=== PATIENT | female | born 1950 | race Caucasian/White ===

== ENCOUNTER 2019-11-27 17:51 | Inpatient (IN) | payer MEDICARE, OTHER ==
[~2019-11-27] VITALS: Ht 157.4 cm; Wt 44.5 kg
[2019-11-27] VITALS (8 sets, daily range): BP systolic 134–161; BP diastolic 61–93
[~2019-11-27 17:51] MED LIST: ASPIRIN81 M1 PO; ATENOLOL25 MG PO; ATIVAN1 MG PO; CRESTOR40 MG PO; FISH OIL 10001000 MG PO; HYDROCODONE BIT1 T11 PO; KEFLEX500 MG PO; NAPROSYN500 MG PO; NEXIUM40 MG PO; PREMARIN0.625 M1 PO; VITAMIN D400 IU PO
[2019-11-27 18:18] LABS: BASO # 0.1 10*3/uL (0.0-0.1); BASO % 0.7 % (0.0-1.0); EOS # 0.1 10*3/uL (0.0-0.4); EOS % 0.7 % (1.0-4.0); HEMATOCRIT 34.4 % (37.0-47.0); LYMPH # 1.3 10*3/uL (1.3-4.4); LYMPH % 16.2 % (27.0-41.0); MEAN CELL VOLUME 97.7 fl (81.0-99.0); MEAN CORPUSCULAR HGB 31.5 pg (27.0-31.0); MEAN CORPUSCULAR HGB CONC 32.3 g/dl (33.0-37.0); MEAN PLATELET VOLUME 9.5 fl (9.6-12.3); MONO # 0.6 10*3/uL (0.1-1.0); MONO % 7.5 % (3.0-9.0); NEUT # 6.1 10*3/uL (2.3-7.9); NEUT % 74.3 % (47.0-73.0); NUCLEATED RED BLOOD CELL 0.4 % (0.0-0.0); PLATELET COUNT AUTOMATED 219 10*3/uL (130-400); RED BLOOD COUNT 3.52 10*6/uL (4.10-5.10); RED CELL DISTRI WIDTH 18.4 % (0-14.5); WHITE BLOOD COUNT 8.2 10*3/uL (4.8-10.8)
--- NOTE | 2019-11-27 18:30 | NUR ---
Pt does not want right port used at this time.
[2019-11-27 18:38] LABS: CREATININE 1.5 mg/dL (0.55-1.02); POTASSIUM 3.5 mmol/L (3.5-5.1); TOTAL PROTEIN 6.4 gm/dL (6.4-8.2)
[2019-11-27 18:40] LABS: ACT PARTIAL THROMBO TIME 26.8 SECONDS (20.0-32.1); INTERNATIONAL NORM RATIO 1.1 (2.0-3.5)
[2019-11-27 18:45] LABS: TROPONIN I 0.162 ng/ml (<0.045)
--- NOTE | 2019-11-27 20:38 | NUR ---
Pt states she feels short of breath.Pt was 95 percent on room air and placed on 3 liters at this time.Pt has dimsined lung sounds and reps are easy and nonlabored at this time.
--- NOTE | 2019-11-27 21:15 | NUR ---
aware of pt stating she is short of breath and pt placed on oxygen at this time.
--- NOTE | 2019-11-27 21:39 | NUR ---
Pt up to bathroom at this time.Pt was inc x1 of urine . Pt changed brief and did candy care at this time. Pt short of breath when walking to restroom but when sitting resps non labored.Pt is corse in upper lobes and diminshed in bases abd 95 percent on room air.Pt placed back on 2 liters and is 97 percent at this time.
--- NOTE | 2019-11-27 21:46 | NUR ---
in to see pt and ok for pt to eat at this time.
[2019-11-27] MEDS ORDERED: LORAZEPAM1 MG PO (22:42)
[2019-11-27] MEDS ORDERED: HYDROCORTISONE10 MG PO (22:42)
--- NOTE | 2019-11-27 22:50 | NUR ---
A 69, admitted to , under the services of STEPHANIE Mccann DO with a diagnosis of SYSTOLIC CHF; COPD. Chief complaint is SOB. Patient arrived via bed from ER. Monitor applied. Initial assessment completed. Vital signs taken and recorded. STEPHANIE MCCANN DO notified of admission to the unit. Orders received. See assessment for past medical history, medications and allergies. Patient and/or family oriented to unit. [facility] visitation policy reviewed. Clothing/patient valuable form completed. ESAU DE DIOS
[2019-11-27] MEDS ORDERED: ASPIRIN CHEWABL81 MG PO (23:23)
[2019-11-27] MEDS ORDERED: SODIUM BICARBO650 MG PO (23:31)
--- NOTE | 2019-11-27 23:35 | NUR ---
DR. ALEJANDRO NOTIFID OF CRITICAL TROPONIN OF 0.136
[2019-11-27] MEDS ORDERED: ESOMEPRAZOLE MA40 M1 PO (23:37)
[2019-11-27] MEDS ORDERED: ADVAIR 250/501 EA INH (23:38)
[2019-11-27] MEDS ORDERED: PROAIR HFA8.5 GM INH (23:40)
--- NOTE | 2019-11-27 23:56 | NUR ---
CONSULT CALLED TO DR. REYNOLDS'S ANSWERING SERVICE
--- NOTE | 2019-11-28 02:27 | NUR ---
ATIVAN GIVEN PER ORDER FOR COMPLAINTS OF ANXIETY. WILL MONITOR
--- NOTE | 2019-11-28 03:25 | NUR ---
ATIVAN APPEARS EFFECTIVE, PATIENT ASLEEP AT THIS TIME.
--- NOTE | 2019-11-28 05:30 | NUR ---
IN TO SEE PT AND PASS MORNING MEDICATION. PT REFUSED. PT STATES "I DONT TAKE THIS MEDICATION"
[2019-11-28 06:04] LABS: BASO % 0.1 % (0.0-1.0); HEMATOCRIT 32.7 % (37.0-47.0); LYMPH # 0.7 10*3/uL (1.3-4.4); MEAN CELL VOLUME 96.2 fl (81.0-99.0); MEAN CORPUSCULAR HGB 32.4 pg (27.0-31.0); MEAN CORPUSCULAR HGB CONC 33.6 g/dl (33.0-37.0); MEAN PLATELET VOLUME 10.1 fl (9.6-12.3); MONO # 0.3 10*3/uL (0.1-1.0); MONO % 3.6 % (3.0-9.0); NEUT # 7.6 10*3/uL (2.3-7.9); NEUT % 87.7 % (47.0-73.0); PLATELET COUNT AUTOMATED 199 10*3/uL (130-400); RED CELL DISTRI WIDTH 18.3 % (0-14.5); WHITE BLOOD COUNT 8.7 10*3/uL (4.8-10.8)
[2019-11-28 06:15] LABS: ALBUMIN 2.8 gm/dl (3.1-4.5); CREATININE 1.29 mg/dL (0.55-1.02); POTASSIUM 3.7 mmol/L (3.5-5.1)
[2019-11-28 06:22] LABS: FREE T4 0.98 ng/dl (0.76-1.46); THYROID STIM HORMONE (HS) 0.48 uIU/ml (0.358-4.75)
[2019-11-28 06:37] LABS: ACT PARTIAL THROMBO TIME 28.7 SECONDS (20.0-32.1); INTERNATIONAL NORM RATIO 1.1 (2.0-3.5)
--- NOTE | 2019-11-28 07:30 | NUR ---
PT IS SITTING UP IN BED AT THIS TIME. SHE IS VISIBLY UPSET AND STATES THAT SHE "HAD AN AWFUL NIGHT". PT IS REQUESTING TO BED EDUCATED ON SCHEDULED MEDICATIONS, EDUCATION PROVIDED AND PATIENT VERBALIZES UNDERSTANDING. RESPS ARE EASY AND NONLABORED, VITAL SIGNS WNL. BED LOW, CALL LIGHT WITHIN REACH. WILL CONTINUE TO MONITOR.
[2019-11-28 07:47] LABS: VITAMIN D, 25-HYDROXY 21.4 ng/mL (30-100)
--- NOTE | 2019-11-28 07:51 | NUR ---
24 HR CHART CHECK COMPLETE
[2019-11-28 08:00] VITALS: BP 143/81
--- NOTE | 2019-11-28 08:35 | NUR ---
PT MEDICATED WITH PRN ATIVAN FOR C/O ANXIETY AT THIS TIME. WILL MONITOR FOR EFFECTIVENESS.
--- NOTE | 2019-11-28 09:00 | NUR ---
case management attempted to visit with patient, she is having echo at this time, will see at a later time
--- NOTE | 2019-11-28 09:20 | NUR ---
PT REPORTS RELIEF OF ANXIETY AT THIS TIME. PRN ATIVAN EFFECTIVE.
--- NOTE | 2019-11-28 09:29 | NUR ---
PRN ATIVAN ADMINISTERED PER ORDER FOR C/O ANXIETY. WILL MONITOR FOR EFFECTIVENESS.
--- NOTE | 2019-11-28 09:45 | NUR ---
case management attempted to visit with patient, she was eating her breakfast and didn't want to talk with case management
--- NOTE | 2019-11-28 11:07 | NUR ---
IN TO SEE PT AT THIS TIME. SHE STATES THAT SHE IS TIRED AND WANTING TO REST BUT OTHERWISE BOICES NO C/O. WILL CONTINUE TO MONITOR.
[2019-11-28 12:00] VITALS: BP 135/58
[2019-11-28 16:00] VITALS: BP 112/93
--- NOTE | 2019-11-28 19:30 | NUR ---
PT RESTING IN BED. VOICES NO CONCERNS AT THIS TIME. RESPS EASY AND NONLABORED. NO S/S OF DISTRESS NOTED. VSS. WHITE BOARD UPDATED. POC DISCUSSED W PT. A/O X3. PT REPORTS DECREASED SHORTNESS OF BREATH. ON 2L NC PRN FOR COMFORT. INSTRUCTED ON NEED FOR SPUTUM. WILL CONTINUE TO MONITOR. CALL LIGHT WITHIN REACH.
[2019-11-28 20:00] VITALS: BP 121/69
--- NOTE | 2019-11-28 20:47 | NUR ---
PT REFUSED LIPITOR. STATES SHE HAS TOLD EVERY DOCTOR IN THIS PLACE SHE TAKES CRESTOR AT HOME AND THAT LIPTIOR CAUSES HER LEGS TO HURT.
[2019-11-29] VITALS: BP 124/67
--- NOTE | 2019-11-29 02:57 | NUR ---
Patient sleeping. Respirations relaxed and easy. Siderails up . [place] on. call light within reach HISSOM,SARAH
--- NOTE | 2019-11-29 03:31 | NUR ---
24 HR chart check completed.
[2019-11-29 05:58] LABS: CREATININE 2.03 mg/dL (0.55-1.02); POTASSIUM 3.7 mmol/L (3.5-5.1)
[2019-11-29 06:00] LABS: BASO % 0.1 % (0.0-1.0); HEMATOCRIT 33.4 % (37.0-47.0); LYMPH # 0.6 10*3/uL (1.3-4.4); LYMPH % 6.3 % (27.0-41.0); MEAN CELL VOLUME 96.3 fl (81.0-99.0); MEAN CORPUSCULAR HGB 32.3 pg (27.0-31.0); MEAN CORPUSCULAR HGB CONC 33.5 g/dl (33.0-37.0); MEAN PLATELET VOLUME 10.2 fl (9.6-12.3); MONO # 0.4 10*3/uL (0.1-1.0); MONO % 3.6 % (3.0-9.0); NEUT # 9.1 10*3/uL (2.3-7.9); NEUT % 89.4 % (47.0-73.0); PLATELET COUNT AUTOMATED 231 10*3/uL (130-400); RED BLOOD COUNT 3.47 10*6/uL (4.10-5.10); RED CELL DISTRI WIDTH 18.2 % (0-14.5); WHITE BLOOD COUNT 10.1 10*3/uL (4.8-10.8)
--- NOTE | 2019-11-29 11:06 | NUR ---
DR. OKEEFE GAVE VO AT BEDSIDE TO HOLD PATIENTS LASIX AT THIS TIME
[2019-11-29 12:00] VITALS: BP 119/68
[2019-11-29] MEDS ORDERED: FUROSEMIDE20 M1 PO (16:38)
[2019-11-29] MEDS ORDERED: LOPRESSOR25 MG PO (16:38)
--- NOTE | 2019-11-29 17:34 | NUR ---
Discharge instructions reviewed with patient/family. Patient receptive and verbalizes understanding. Follow-up care arranged. Written instructions given to patient/family. GERARDO CHICAS
== END 2019-11-29 17:59 | disposition home or self-care (01) | DRG 871 ==
LOC: ED 17:51 → EDHOLD 22:16 → 4E 22:16
PROVIDERS: Emergency Medicine; Internal Medicine; Social Worker Clinical; ADMIT Internal Medicine; ATTEND Internal Medicine
DX: A41.9 Sepsis, unspecified organism (principal); N17.0 Acute kidney failure with tubular necrosis; J18.9 Pneumonia, unspecified organism; I50.43 Acute on chronic combined systolic (congestive) and diastolic (congestive) heart failure; J44.1 Chronic obstructive pulmonary disease with (acute) exacerbation; E44.0 Moderate protein-calorie malnutrition; E27.49 Other adrenocortical insufficiency; Z68.1 Body mass index [BMI] 19.9 or less, adult; J44.0 Chronic obstructive pulmonary disease with (acute) lower respiratory infection; K21.9 Gastro-esophageal reflux disease without esophagitis; I25.10 Atherosclerotic heart disease of native coronary artery without angina pectoris; E78.5 Hyperlipidemia, unspecified; F12.90 Cannabis use, unspecified, uncomplicated; D64.9 Anemia, unspecified; E87.8 Other disorders of electrolyte and fluid balance, not elsewhere classified; R79.82 Elevated C-reactive protein (CRP); E78.2 Mixed hyperlipidemia; C11.9 Malignant neoplasm of nasopharynx, unspecified; I11.0 Hypertensive heart disease with heart failure; R65.20 Severe sepsis without septic shock; I34.0 Nonrheumatic mitral (valve) insufficiency; Z80.42 Family history of malignant neoplasm of prostate; Z88.6 Allergy status to analgesic agent; Z90.710 Acquired absence of both cervix and uterus; Z95.5 Presence of coronary angioplasty implant and graft; I25.2 Old myocardial infarction; Z98.890 Other specified postprocedural states; Z86.79 Personal history of other diseases of the circulatory system; Z79.899 Other long term (current) drug therapy

== ENCOUNTER 2020-01-25 13:16 | Emergency (ER) | payer MEDICARE, OTHER ==
[~2020-01-25] VITALS: Ht 157.4 cm; Wt 47.6 kg
[~2020-01-25 13:16] MED LIST changes: +ADVAIR 250/501 EA INH; +ASPIRIN CHEWABL81 MG PO; +ESOMEPRAZOLE MA40 M1 PO; +FUROSEMIDE20 M1 PO; +HYDROCORTISONE10 MG PO; +LOPRESSOR25 MG PO; +LORAZEPAM1 MG PO; +PROAIR HFA8.5 GM INH; +SODIUM BICARBO650 MG PO
[2020-01-25 14:02] LABS: BASO % 0.4 % (0.0-1.0); EOS % 0.5 % (1.0-4.0); HEMATOCRIT 37.3 % (37.0-47.0); LYMPH % 17.1 % (27.0-41.0); MEAN CELL VOLUME 93.3 fl (81.0-99.0); MEAN CORPUSCULAR HGB 29.8 pg (27.0-31.0); MEAN CORPUSCULAR HGB CONC 31.9 g/dl (33.0-37.0); MEAN PLATELET VOLUME 10.1 fl (9.6-12.3); MONO # 0.3 10*3/uL (0.1-1.0); MONO % 5.2 % (3.0-9.0); NEUT # 4.2 10*3/uL (2.3-7.9); PLATELET COUNT AUTOMATED 126 10*3/uL (130-400); RED CELL DISTRI WIDTH 18.2 % (0-14.5); WHITE BLOOD COUNT 5.6 10*3/uL (4.8-10.8)
[2020-01-25 14:16] LABS: ALBUMIN 2.7 gm/dl (3.1-4.5); CREATININE 1.46 mg/dL (0.55-1.02); POTASSIUM 3.3 mmol/L (3.5-5.1); TOTAL PROTEIN 5.9 gm/dL (6.4-8.2)
[2020-01-25 14:19] LABS: ACT PARTIAL THROMBO TIME 25.6 SECONDS (20.0-32.1); INTERNATIONAL NORM RATIO 1.1 (2.0-3.5)
[2020-01-25 14:35] LABS: TROPONIN I 0.117 ng/ml (<0.045)
[2020-01-25 15:45] VITALS: BP 121/74
[2020-01-25] MEDS ORDERED: TESSALON PERLE100 M1 PO (16:14)
== END 2020-01-25 16:23 | disposition home or self-care (01) ==
LOC: ED 13:16
PROVIDERS: Nurse Practitioner Family
DX: J44.9 Chronic obstructive pulmonary disease, unspecified (principal); I11.0 Hypertensive heart disease with heart failure; I50.9 Heart failure, unspecified; I25.10 Atherosclerotic heart disease of native coronary artery without angina pectoris; I25.2 Old myocardial infarction; K21.9 Gastro-esophageal reflux disease without esophagitis; E78.5 Hyperlipidemia, unspecified; F17.200 Nicotine dependence, unspecified, uncomplicated; Z88.6 Allergy status to analgesic agent; Z79.899 Other long term (current) drug therapy

== ENCOUNTER 2022-09-25 14:27 | Inpatient (IN) | payer MEDICARE, OTHER ==
[~2022-09-25] VITALS: Ht 154.9 cm; Wt 47.7 kg
[~2022-09-25 14:27] MED LIST changes: +AMIODARONE HYD200 MG PO; +AMLODIPINE BESYL5 MG PO; -CRESTOR40 MG PO; +CRESTOR5 M1 PO; +ELIQUIS5 M1 PO; +FUROSEMIDE40 MG PO; +Ipratropium Brom3 ML INH; +LISINOPRIL10 M1 PO; +METOPROLOL TART50 M1 PO; +POTASSIUM CHLO20 ME4 PO; +TESSALON PERLE100 M1 PO
[2022-09-25 14:46] VITALS: BP 103/44
[2022-09-25 15:52] LABS: BASO # 0.1 10*3/uL (0.0-0.1); BASO % 0.6 % (0.0-1.0); EOS # 0.1 10*3/uL (0.0-0.4); EOS % 1.4 % (1.0-4.0); HEMATOCRIT 37.6 % (37.0-47.0); LYMPH # 1.4 10*3/uL (1.3-4.4); MEAN CELL VOLUME 89.5 fl (81.0-99.0); MEAN CORPUSCULAR HGB 29.8 pg (27.0-31.0); MEAN CORPUSCULAR HGB CONC 33.2 g/dl (33.0-37.0); MEAN PLATELET VOLUME 10.2 fl (9.6-12.3); MONO # 0.7 10*3/uL (0.1-1.0); MONO % 8.9 % (3.0-9.0); NEUT % 71.6 % (47.0-73.0); PLATELET COUNT AUTOMATED 134 10*3/uL (130-400); RED CELL DISTRI WIDTH 17.1 % (0-14.5); WHITE BLOOD COUNT 8.3 10*3/uL (4.8-10.8)
[2022-09-25 16:17] LABS: POTASSIUM 3.9 mmol/L (3.4-5.1); TOTAL PROTEIN 6.8 gm/dL (6.0-8.0)
[2022-09-25 17:42] VITALS: BP 148/59
[2022-09-25 18:30] VITALS: BP 148/59
[2022-09-25 18:57] LABS: BILIRUBIN Negative (Negative); BLOOD 2+ (Negative); CLARITY Clear (Clear); COLOR Yellow (Yellow); GLUCOSE Negative (Negative); KETONE Negative (Negative); LEUKO ESTERASE Trace (Negative); NITRITE Negative (Negative); UROBILINOGEN 0.2 E.U./dl (0.0-1.0)
[2022-09-25 19:04] LABS: BACTERIA 3+; HYALINE CAST 0-2; RBC 21-30 rbc/hpf (0-2)
[2022-09-25 20:50] VITALS: BP 101/48
[2022-09-25] MEDS ORDERED: AMIODARONE HYD200 MG PO (22:40)
[2022-09-25] MEDS ORDERED: MYRBETRIQ50 M1 PO (22:40)
[2022-09-25] MEDS ORDERED: MACRODANTIN50 MG PO (22:41)
[2022-09-25] MEDS ORDERED: BENZONATATE100 M1 PO (22:44)
[2022-09-26] VITALS: BP 115/59
[2022-09-26 06:56] LABS: BASO % 0.2 % (0.0-1.0); EOS # 0.1 10*3/uL (0.0-0.4); EOS % 0.9 % (1.0-4.0); HEMATOCRIT 31.5 % (37.0-47.0); LYMPH # 0.6 10*3/uL (1.3-4.4); LYMPH % 9.7 % (27.0-41.0); MEAN CORPUSCULAR HGB 29.6 pg (27.0-31.0); MEAN CORPUSCULAR HGB CONC 33.7 g/dl (33.0-37.0); MEAN PLATELET VOLUME 10.2 fl (9.6-12.3); MONO # 0.5 10*3/uL (0.1-1.0); NEUT # 4.6 10*3/uL (2.3-7.9); NEUT % 80.7 % (47.0-73.0); PLATELET COUNT AUTOMATED 112 10*3/uL (130-400); RED BLOOD COUNT 3.58 10*6/uL (4.10-5.10); RED CELL DISTRI WIDTH 16.9 % (0-14.5); WHITE BLOOD COUNT 5.8 10*3/uL (4.8-10.8)
[2022-09-26 07:45] LABS: ALKALINE PHOSPHATASE 58 U/L (46-116); BUN 28 mg/dl (9-23); CHLORIDE 109 mmol/L (98-107); POTASSIUM 4.5 mmol/L (3.4-5.1); TOTAL PROTEIN 5.6 gm/dL (6.0-8.0)
[2022-09-26 07:55] LABS: SGPT/ALT < 7 U/L (10-49)
[2022-09-26 08:00] VITALS: BP 116/57
[2022-09-26] MEDS ORDERED: ONDANSETRON HYDR4 M1 PO (11:46)
[2022-09-26 12:00] VITALS: BP 130/54
== END 2022-09-26 13:05 | disposition home health service (06) | DRG 640 ==
LOC: ED 14:27 → 5E 17:41 → EDHOLD 17:41 → 5E 19:25
PROVIDERS: Student in an Organized Health Care Education/Training Program; ADMIT Emergency Medicine; ATTEND Emergency Medicine
DX: E86.0 Dehydration (principal); N17.0 Acute kidney failure with tubular necrosis; E44.0 Moderate protein-calorie malnutrition; Z68.1 Body mass index [BMI] 19.9 or less, adult; E87.1 Hypo-osmolality and hyponatremia; E87.20 Acidosis, unspecified; I25.10 Atherosclerotic heart disease of native coronary artery without angina pectoris; J44.9 Chronic obstructive pulmonary disease, unspecified; K21.9 Gastro-esophageal reflux disease without esophagitis; F17.210 Nicotine dependence, cigarettes, uncomplicated; D64.9 Anemia, unspecified; D69.6 Thrombocytopenia, unspecified; E78.5 Hyperlipidemia, unspecified; Z88.6 Allergy status to analgesic agent; Z88.1 Allergy status to other antibiotic agents; Z90.710 Acquired absence of both cervix and uterus; Z80.42 Family history of malignant neoplasm of prostate; I25.2 Old myocardial infarction; Z95.5 Presence of coronary angioplasty implant and graft; Z71.6 Tobacco abuse counseling

== ENCOUNTER → 2022-10-10 | Outpatient (CLI) | payer MEDICARE, OTHER ==
[~2022-10-10] MED LIST changes: +BENZONATATE100 M1 PO; +MACRODANTIN50 MG PO; +MYRBETRIQ50 M1 PO; +ONDANSETRON HYDR4 M1 PO
== END | disposition home or self-care (01) ==
LOC: RESCLI 01:03
PROVIDERS: ATTEND Emergency Medicine
DX: I48.91 Unspecified atrial fibrillation (principal); F17.210 Nicotine dependence, cigarettes, uncomplicated; Z88.5 Allergy status to narcotic agent; Z88.8 Allergy status to other drugs, medicaments and biological substances; Z98.890 Other specified postprocedural states; Z82.49 Family history of ischemic heart disease and other diseases of the circulatory system; Z86.16 Personal history of COVID-19; Z90.710 Acquired absence of both cervix and uterus; Z79.899 Other long term (current) drug therapy

== ENCOUNTER → 2022-11-07 | Outpatient (CLI) | payer MEDICARE, OTHER | END | disposition home or self-care (01) | LOC: RESCLI 01:03 | PROVIDERS: ATTEND Emergency Medicine | DX: I48.91 Unspecified atrial fibrillation (principal); K21.9 Gastro-esophageal reflux disease without esophagitis; J44.9 Chronic obstructive pulmonary disease, unspecified; I12.9 Hypertensive chronic kidney disease with stage 1 through stage 4 chronic kidney disease, or unspecified chronic kidney disease; N18.4 Chronic kidney disease, stage 4 (severe); Z98.890 Other specified postprocedural states; Z90.710 Acquired absence of both cervix and uterus; F17.210 Nicotine dependence, cigarettes, uncomplicated; Z79.01 Long term (current) use of anticoagulants; Z88.5 Allergy status to narcotic agent; Z88.8 Allergy status to other drugs, medicaments and biological substances; Z79.899 Other long term (current) drug therapy ==